=== PATIENT | female | born 1955 | race Caucasian/White ===

== ENCOUNTER 2021-11-26 09:40 | Outpatient (CLI) | payer MEDICARE | END 2021-11-26 09:41 | disposition home or self-care (01) | LOC: CSHMAMMO 09:40 | PROVIDERS: ATTEND Internal Medicine | DX: Z13.820 Encounter for screening for osteoporosis (principal); M85.88 Other specified disorders of bone density and structure, other site | CPT/HCPCS: 77080 ==